=== PATIENT | male | born 1990 | race Caucasian/White ===

== ENCOUNTER 2020-01-06 12:34 | Emergency (ER) | payer SELFPAY ==
[~2020-01-06] VITALS: Ht 175.3 cm; Wt 79.3 kg
[2020-01-06] MEDS ORDERED: NAPROXEN 500 MG TABLET PO STA (12:51)
--- NOTE | 2020-01-06 13:25 | RAD ---
EXAM: 3 views of the right elbow DATE: 01/06/2020 12:51 PM INDICATION: Reason: R elbow pain and swelling x 2 weeks / Spl. Instructions: / History: COMPARISON: No Prior FINDINGS: No elbow joint effusion. Mild soft tissue swelling overlying the medial epicondyle and olecranon. Subtle ossification at the dorsal aspect of the olecranon is well-corticated and may represent old avulsion injury or heterotopic ossification in addition be correlated for patient's symptoms. Otherwise, no acute fracture or dislocation. IMPRESSION: 1. Well-corticated ossification overlying the olecranon may represent old avulsion injury or heterotopic ossification and should be correlated with patient's symptoms to exclude acute on chronic fracture/injury. Otherwise no acute fracture. 2. Diffuse medial and dorsal elbow soft tissue swelling. If there is clinical concern for derangement of the right elbow such as ulnar collateral ligamentous injury or medial epicondylitis, MRI would provide additional details. Electronically signed by: Yury Sarmiento MD (01/06/2020 1:22 PM) YASMINE
[2020-01-06] MEDS ORDERED: METH4TAB2 PO (14:32)
[2020-01-06] MEDS ORDERED: NAPR-514 PO (14:32)
--- NOTE | 2020-01-06 14:33 | PHYS DOC ---
Past Medical History Past Medical History: Hypertension, Other Additional Past Medical Histor: HEMOPHILIA/B-FACTOR 9 (RIO EUCEDA APRN) Past Surgical History: No Surgical History (RIO EUCEDA APRN) Smoking Status: Current Every Day Smoker Additional Information: SMOKES 0.5 TO 1 PPD Alcohol Use: None Social History Narrative: LAST USED METH /LAST USED MARIJUANA (RIO EUCEDA APRN) General Adult EDM: Chief Complaint: UPPER EXTREMITY INJURY HPI: HPI: Patient is a 29 year old who presents to the emergency department with complaints of pain, swelling, and decreased range of motion of his right elbow for 2 weeks. He denies any known injury or illicit drug use. He denies any fever, numbness, tingling, or weakness of the affected extremity. He currently rates pain 9 out of 10 on the pain scale. He denies any allevia ting or exacerbating factors, he has tried taking Tylenol with no reduction in his pain. (RIO EUCEDA APRN) Review of Systems: Review of Systems: Constitutional: Denies fever or chills. [] Musculoskeletal: See HPI Integument: Denies rash. [] Neurologic: Denies focal weakness or sensory changes. [] Psychiatric: Denies depression or anxiety. [] (RIO EUCEDA APRN) Heart Score: Risk Factors: Risk Factors: DM, Current or recent (<one month) smoker, HTN, HLP, family history of CAD, obesity. Risk Scores: Score 0 - 3: 2.5% MACE over next 6 weeks - Discharge Home Score 4 - 6: 20.3% MACE over next 6 weeks - Admit for Clinical Observation Score 7 - 10: 72.7% MACE over next 6 weeks - Early Invasive Strategies (RIO EUCEDA APRN) Current Medications: Current Medications Medications (Trade) Dose Ordered Sig/Goran Start Time Stop Time Status Last Admin Dose Admin Naproxen (Naprosyn) 500 mg 1X STAT 01/06/20 12:51 01/06/20 12:59 DC 01/06/20 13:38 500 MG (RIO EUCEDA APRN) Allergies: Allergies: Allergies Coded Allergies Type Severity Reaction Last Updated Verified No Known Drug Allergies 01/06/20 No (RIO EUCEDA APRN) Physical Exam: PE: Constitutional: Well developed, well nourished, no acute distress, non-toxic appearance. [] HENT: Normocephalic, atraumatic, bilateral external ears normal, nose normal. [] Eyes: PERRLA, EOMI, conjunctiva normal, no discharge. [] Neck: Normal range of motion, no stridor. [] Cardiovascular:Heart rate regular rhythm Lungs & Thorax: Respirations even and unlabored, no retractions, no respiratory distress Skin: Warm, dry, no erythema, no rash. [] Extremities: Right elbow: Diffuse tenderness to palpation with limited extension, normal flexion, no erythema, no visible abscess, no cyanosis, 2+ edema. [] Neurologic: Alert and oriented X 3, no focal deficits noted. [] Psychologic: Affect normal, judgement normal, mood normal. [] (RIO EUCEDA APRN) Current Patient Data: Vital Signs: Vital Signs Date Time Temp Pulse Resp B/P (MAP) Pulse Ox O2 Delivery O2 Flow Rate FiO2 01/06/20 12:41 98.8 96 17 161/99 (119) 99 Room Air 98.8 (RIO EUCEDA APRN) EKG: EKG: [] (RIO EUCEDA APRN) Radiology/Procedures: Radiology/Procedures: PROCEDURE: ELBOW RIGHT 3V EXAM: 3 views of the right elbow DATE: 01/06/2020 12:51 PM INDICATION: Reason: R elbow pain and swelling x 2 weeks / Spl. Instructions: / History: COMPARISON: No Prior FINDINGS: No elbow joint effusion. Mild soft tissue swelling overlying the medial epicondyle and olecranon. Subtle ossification at the dorsal aspect of the olecranon is well-corticated and may represent old avulsion injury or heterotopic ossification in addition be correlated for patient's symptoms. Otherwise, no acute fracture or dislocation. IMPRESSION: 1. Well-corticated ossification overlying the olecranon may represent old avulsion injury or heterotopic ossification and should be correlated with patient's symptoms to exclude acute on chronic fracture/injury. Otherwise no acute fracture. 2. Diffuse medial and dorsal elbow soft tissue swelling. If there is clinical concern for derangement of the right elbow such as ulnar collateral ligamentous injury or medial epicondylitis, MRI would provide additional details. (RIO EUCEDA APRN) Course & Med Decision Making: Course & Med Decision Making Pertinent Labs and Imaging studies reviewed. (See chart for details) 1420-spoke with Dr. Frye about the patient's x-ray. Will prescribe naproxen and a Medrol Dosepak. Recommend follow-up with orthopedics for further evaluat ion and treatment. (RIO EUCEDA APRN) Course & Med Decision Making I have reviewed the PA/SYSTEM SUPPORT TECHNICIAN's note and Plan of Care. I was available for consultation as needed during the patient's visit in the emergency department. I agree with the clinical impression, plans and disposition. (ARMEN WADDELL MD) Dragon Disclaimer: Dragon Disclaimer: This electronic medical record was generated, in whole or in part, using a voice recognition dictation system. (RIO EUCEDA APRN) Departure Departure Impression: Primary Impression: Elbow pain, right Additional Impressions: Pain and swelling of right elbow Bursitis of right elbow Qualified Codes: M70.31 - Other bursitis of elbow, right elbow Disposition: HOME, SELF-CARE Condition: STABLE Referrals: ANNALISE FRYE II, MD Patient Instructions: Elbow Effusion-Brief Additional Instructions: Fill prescription(s) and use as directed. Recommend application of ice, elevation, and rest of affected extremity. Follow-up with Dr. Frye for further evaluation. Return to the ER if your symptoms worsen, or fever develops.. Scripts Methylprednisolone (MEDROL) 4 Mg Tab.ds.pk 1 PKG PO UD for 6 Days, #1 PKG 0 Refills Prov: RIO EUCEDA APRN 01/06/20 Naproxen (NAPROXEN) 500 Mg Tablet 1 TAB PO BID PRN for PAIN for 10 Days, #20 TAB 0 Refills Prov: RIO EUCEDA APRN 01/06/20 Justicifation of Admission Dx: Justifications for Admission: Justification of Admission Dx: N/A (RIO EUCEDA APRN) RIO EUCEDA APRN Jan 06, 2020 14:33 ARMEN WADDELL MD Jan 06, 2020 15:11
[2020-01-06 14:50] VITALS: BP 152/93
== END 2020-01-06 14:50 | disposition home or self-care (01) ==
LOC: ER 12:34
DX: M70.31 Other bursitis of elbow, right elbow (principal); I10 Essential (primary) hypertension; F17.200 Nicotine dependence, unspecified, uncomplicated
CPT/HCPCS: 73080; 99283